=== PATIENT | female | born 1960 | race Two or more races ===

== ENCOUNTER 2018-07-21 20:10 | Emergency (ER) | payer OTHER ==
[~2018-07-21] VITALS: Ht 157.5 cm; Wt 79.4 kg
[2018-07-21 21:23] LABS: Basophils # (auto) 0.1 uL; Basophils % (auto) 0.8 % (0.0-2.0); Eosinophils # (auto) 0.1 uL; Hematocrit 44.2 % (36.0-46.0); Hemoglobin 14.8 g/dL (12.2-16.2); Lymphocytes # (auto) 2.2 uL; Lymphocytes % (auto) 29.8 % (10.0-50.0); Mean Corpuscular Hemoglobin 30.6 pg (28.0-32.0); Mean Corpuscular Hgb Conc. 33.6 g/dL (32.0-36.0); Mean Corpuscular Volume 91.2 fL (80.0-100.0); Monocytes # (auto) 0.6 uL; Monocytes % (auto) 7.9 % (0.0-12.0); Neutrophils # (auto) 4.5 uL; Neutrophils % (auto) 60.5 % (37.0-80.0); Nucleated Red Blood Cells % 0.1 %; Platelet Count (auto) 266 10^3/uL (140-450); Red Blood Cells 4.85 10^6/uL (4.0-5.20); Red Cell Distribution Width 13.7 % (11.8-14.3); White Blood Cell 7.3 10^3/uL (4.4-10.8)
[2018-07-21 21:30] LABS: Partial Thromboplastin Time 26.7 sec (23.78-33.04); Prothrombin Time 10.7 sec (9.27-12.13)
[2018-07-21 21:33] LABS: Urine Bacteria MANY /hpf (None Seen); Urine Blood 2+ /uL (Negative); Urine Mucus FEW (None Seen); Urine Specific Gravity 1.023 (1.001-1.035); Urine WBC 94 /hpf (0 - 5)
[2018-07-21 21:34] LABS: Albumin 3.8 g/dL (3.4-5.0); BUN/Creatinine Ratio 17.3; Calcium 8.9 mg/dL (8.5-10.1); Potassium 3.9 mmol/L (3.5-5.1)
[2018-07-21 21:49] LABS: Bilirubin, Total 0.5 mg/dL (0.2-1.0); Total Protein 8.2 g/dL (6.4-8.2)
[2018-07-22 06:29] VITALS: BP 145/73
== END 2018-07-22 06:50 | disposition home or self-care (01) ==
LOC: ER 20:10
DX: N39.0 Urinary tract infection, site not specified (principal); R19.7 Diarrhea, unspecified; R10.84 Generalized abdominal pain; Z88.0 Allergy status to penicillin
CPT/HCPCS: 36415; 74176; 80053; 81001; 82150; 83605; 83690; 85025; 85610; 85730

== ENCOUNTER 2020-09-06 11:30 | Emergency (ER) | payer OTHER ==
[~2020-09-06] VITALS: Ht 157.5 cm; Wt 81.6 kg
[2020-09-06] MEDS ORDERED: ASPirin 81 mg TAB PO ONE (11:45)
[2020-09-06] MEDS ORDERED: ONDANSETRON HCL 4 MG/2 ML VIAL IV ONE (11:45)
[2020-09-06] MEDS ORDERED: MORPHINE SULFATE 4 MG/ML SYR/VIAL IV ONE (11:45)
[2020-09-06 13:58] LABS: Basophils # (auto) 0 10 ^3/uL (0-0.2); Basophils % (auto) 0.3 % (0.0-2.0); Eosinophils # (auto) 0.1 10 ^3/uL (0-0.8); Eosinophils % (auto) 1.1 % (0.0-7.0); Hematocrit 40.9 % (36.0-46.0); Hemoglobin 13.6 g/dL (12.2-16.2); Lymphocytes # (auto) 1.8 10 ^3/uL (0.4-5.4); Lymphocytes % (auto) 30.2 % (10.0-50.0); Mean Corpuscular Hemoglobin 30.7 pg (28.0-32.0); Mean Corpuscular Hgb Conc. 33.2 g/dL (32.0-36.0); Mean Corpuscular Volume 92.4 fL (80.0-100.0); Monocytes # (auto) 0.3 10 ^3/uL (0-1.3); Monocytes % (auto) 5.9 % (0.0-12.0); Neutrophils # (auto) 3.7 10 ^3/uL (1.6-8.6); Neutrophils % (auto) 62.5 % (37.0-80.0); Nucleated Red Blood Cells % 0.1 %; Platelet Count (auto) 212 10^3/uL (140-450); Red Blood Cells 4.43 10^6/uL (4.0-5.20); Red Cell Distribution Width 14.1 % (11.8-14.3); White Blood Cell 5.9 10^3/uL (4.4-10.8)
[2020-09-06 14:12] LABS: Alanine Aminotransferase 44 U/L (13-56); Albumin 3.8 g/dL (3.4-5.0); Anion Gap 8 (5-15); Aspartate Aminotransferase 36 U/L (15-37); BUN/Creatinine Ratio 21.7; Blood Urea Nitrogen 13 mg/dL (7-18); Calcium 8.7 mg/dL (8.5-10.1); Carbon Dioxide 24 mmol/L (21-32); Chloride 108 mmol/L (98-107); GFR African American 132 mL/min; GFR Non-African American 109 mL/min; Glucose 85 mg/dL (74-106); Magnesium 1.8 mg/dL (1.6-2.6); Potassium 3.8 mmol/L (3.5-5.1); Sodium 140 mmol/L (136-145)
[2020-09-06 14:17] LABS: Alkaline Phosphatase 87 U/L (45-117); Bilirubin, Total 0.6 mg/dL (0.2-1.0); Total Protein 7.3 g/dL (6.4-8.2)
[2020-09-06 14:52] VITALS: BP 116/65
== END 2020-09-06 15:59 | disposition home or self-care (01) ==
LOC: ER 11:30
DX: R07.89 Other chest pain (principal); Z90.49 Acquired absence of other specified parts of digestive tract; Z90.89 Acquired absence of other organs; Z98.51 Tubal ligation status; Z88.0 Allergy status to penicillin
CPT/HCPCS: 36415; 71046; 80053; 83735; 84484; 85025; 85379; 93005; 96374; 96375; 99285; J2270; J2405

== ENCOUNTER 2021-07-28 20:06 | Emergency (ER) | payer OTHER ==
[~2021-07-28] VITALS: Ht 157.5 cm; Wt 79.4 kg
[2021-07-28 22:15] LABS: Basophils # (auto) 0 10 ^3/uL (0-0.2); Basophils % (auto) 0.7 % (0.0-2.0); Eosinophils # (auto) 0.1 10 ^3/uL (0-0.8); Eosinophils % (auto) 2.1 % (0.0-7.0); Hematocrit 43.7 % (36.0-46.0); Hemoglobin 14.5 g/dL (12.2-16.2); Lymphocytes # (auto) 2.1 10 ^3/uL (0.4-5.4); Lymphocytes % (auto) 31.1 % (10.0-50.0); Mean Corpuscular Hemoglobin 30.4 pg (28.0-32.0); Mean Corpuscular Hgb Conc. 33.3 g/dL (32.0-36.0); Mean Corpuscular Volume 91.4 fL (80.0-100.0); Monocytes # (auto) 0.5 10 ^3/uL (0-1.3); Neutrophils # (auto) 3.9 10 ^3/uL (1.6-8.6); Neutrophils % (auto) 58.1 % (37.0-80.0); Red Blood Cells 4.78 10^6/uL (4.0-5.20); Red Cell Distribution Width 13.7 % (11.8-14.3); White Blood Cell 6.7 10^3/uL (4.4-10.8)
[2021-07-28 22:28] LABS: Alanine Aminotransferase 35 U/L (13-56); Anion Gap 6 (5-15); Blood Urea Nitrogen 17 mg/dL (7-18); Calcium 9.1 mg/dL (8.5-10.1); Carbon Dioxide 23 mmol/L (21-32); Chloride 111 mmol/L (98-107); Glucose 107 mg/dL (74-106); Sodium 140 mmol/L (136-145)
[2021-07-28 22:43] LABS: Alkaline Phosphatase 95 U/L (45-117); Aspartate Aminotransferase 20 U/L (15-37); BUN/Creatinine Ratio 25.4; Bilirubin, Total 0.4 mg/dL (0.2-1.0); GFR African American 115 mL/min; GFR Non-African American 95 mL/min; Total Protein 7.5 g/dL (6.4-8.2)
[2021-07-29] MEDS ORDERED: HYDROcodone-ACET 5/325MG TAB PO ONE (02:00)
[2021-07-29 03:54] VITALS: BP 152/90
== END 2021-07-29 03:57 | disposition home or self-care (01) ==
LOC: ER 20:06
DX: M54.6 Pain in thoracic spine (principal); R91.1 Solitary pulmonary nodule; Z90.49 Acquired absence of other specified parts of digestive tract; Z90.89 Acquired absence of other organs; Z88.0 Allergy status to penicillin
CPT/HCPCS: 36415; 72128; 80053; 83880; 84484; 85025; 93005

== ENCOUNTER 2022-04-06 09:30 | Emergency (ER) | payer OTHER ==
[~2022-04-06] VITALS: Ht 157.5 cm; Wt 74.8 kg
[2022-04-06 09:55] VITALS: BP 144/84
[2022-04-06 10:01] LABS: Basophils # (auto) 0.1 10 ^3/uL (0-0.2); Basophils % (auto) 1.4 % (0.0-2.0); Eosinophils # (auto) 0 10 ^3/uL (0-0.8); Eosinophils % (auto) 0.1 % (0.0-7.0); Hematocrit 39.2 % (36.0-46.0); Hemoglobin 13.5 g/dL (12.2-16.2); Lymphocytes # (auto) 1.7 10 ^3/uL (0.4-5.4); Lymphocytes % (auto) 18.1 % (10.0-50.0); Mean Corpuscular Hemoglobin 30.7 pg (28.0-32.0); Mean Corpuscular Hgb Conc. 34.4 g/dL (32.0-36.0); Mean Corpuscular Volume 89.2 fL (80.0-100.0); Monocytes # (auto) 0.6 10 ^3/uL (0-1.3); Monocytes % (auto) 6.6 % (0.0-12.0); Neutrophils # (auto) 7.1 10 ^3/uL (1.6-8.6); Neutrophils % (auto) 73.8 % (37.0-80.0); Nucleated Red Blood Cells % 0.1 %; Red Cell Distribution Width 13.5 % (11.8-14.3); White Blood Cell 9.6 10^3/uL (4.4-10.8)
[2022-04-06 10:26] LABS: Albumin 3.6 g/dL (3.4-5.0); Calcium 8.7 mg/dL (8.5-10.1); Potassium 3.7 mmol/L (3.5-5.1)
[2022-04-06 10:28] LABS: Urine Bacteria NONE SEEN /hpf (None Seen); Urine Blood 3+ /uL (Negative); Urine Specific Gravity 1.025 (1.001-1.035); Urine WBC 1 /hpf (0 - 5)
[2022-04-06 10:30] LABS: BUN/Creatinine Ratio 10.5
[2022-04-06 10:31] LABS: Bilirubin, Total 0.7 mg/dL (0.2-1.0); Total Protein 7.5 g/dL (6.4-8.2)
[2022-04-06] MEDS ORDERED: LOPERAMIDE HCL 2 MG CAP/TAB PO ONE (11:45)
[2022-04-06] MEDS ORDERED: DICYCLOMINE HCL 10 MG CAP PO ONE (11:45)
[2022-04-06] MEDS ORDERED: DICYCLOMINE HCL 10 MG CAP ONE (11:50)
[2022-04-06] MEDS ORDERED: IBUP800T27 PO (13:43)
[2022-04-06] MEDS ORDERED: TAM04C PO (13:43)
== END 2022-04-06 13:51 | disposition home or self-care (01) ==
LOC: ER 09:30
DX: K52.9 Noninfective gastroenteritis and colitis, unspecified (principal); N20.0 Calculus of kidney; D25.9 Leiomyoma of uterus, unspecified; K76.0 Fatty (change of) liver, not elsewhere classified; Z90.49 Acquired absence of other specified parts of digestive tract; Z90.89 Acquired absence of other organs; Z79.1 Long term (current) use of non-steroidal anti-inflammatories (NSAID); Z79.899 Other long term (current) drug therapy; Z88.0 Allergy status to penicillin
CPT/HCPCS: 36415; 74176; 80053; 81001; 83690; 85025; 93005; 99285; J0500

== ENCOUNTER 2022-08-21 08:19 | Emergency (ER) | payer OTHER ==
[~2022-08-21] VITALS: Ht 157.5 cm; Wt 85.8 kg
[~2022-08-21 08:19] MED LIST: IBUP800T27 PO; TAM04C PO
[2022-08-21 08:46] LABS: Urine Bacteria NONE SEEN /hpf (None Seen); Urine Blood 2+ /uL (Negative); Urine Specific Gravity 1.018 (1.001-1.035); Urine WBC 6 /hpf (0 - 5)
[2022-08-21 08:57] LABS: Alcohol, Urine < 3.0 mg/dL (0-10); Amphetamine Screen, Urine NEGATIVE (NEGATIVE); Barbiturate Scree,Urine NEGATIVE (NEGATIVE); Benzodiazephine Screen, Urine NEGATIVE (NEGATIVE); Cannabinoid Screen, Urine NEGATIVE (NEGATIVE); Cocaine Screen, Urine NEGATIVE (NEGATIVE); Opiate Scree,Urine NEGATIVE (NEGATIVE); Phencyclidine Screen, Urine NEGATIVE (NEGATIVE)
[2022-08-21] MEDS ORDERED: NITR-87 PO (11:06)
[2022-08-21 12:32] VITALS: BP 120/84
== END 2022-08-21 12:34 | disposition home or self-care (01) ==
LOC: ER 08:19
DX: N39.0 Urinary tract infection, site not specified (principal); Z90.89 Acquired absence of other organs; Z98.51 Tubal ligation status; Z90.49 Acquired absence of other specified parts of digestive tract; Z88.0 Allergy status to penicillin
CPT/HCPCS: 71250; 80307; 81001

== ENCOUNTER 2023-01-10 07:33 | Emergency (ER) | payer OTHER ==
[~2023-01-10] VITALS: Ht 157.5 cm; Wt 85.6 kg
[~2023-01-10 07:33] MED LIST changes: +NITR-87 PO
[2023-01-10 08:29] VITALS: BP 112/80
[2023-01-10] MEDS ORDERED: AUG875T PO ×2 (08:31)
[2023-01-10] MEDS ORDERED: PROM1SOL4 PO (08:31)
[2023-01-10] MEDS ORDERED: AZIT500T66 PO (13:26)
[2023-01-11] MEDS ORDERED: METH4PAK PO (18:20)
== END 2023-01-10 08:40 | disposition home or self-care (01) ==
LOC: ER 07:33
DX: H66.91 Otitis media, unspecified, right ear (principal); J20.9 Acute bronchitis, unspecified; Z90.49 Acquired absence of other specified parts of digestive tract; Z98.51 Tubal ligation status
CPT/HCPCS: 71046

== ENCOUNTER 2024-03-09 08:35 | Emergency (ER) | payer OTHER ==
[~2024-03-09] VITALS: Ht 157.5 cm; Wt 87.8 kg
[~2024-03-09 08:35] MED LIST changes: +AZIT500T66 PO; +IBUP-1456 PO; -IBUP800T27 PO; +METH4PAK PO; +PROM1SOL4 PO; -TAM04C PO; +TAMS-35 PO
[2024-03-09] MEDS ORDERED: IBUP1TAB5 PO (10:09)
[2024-03-09] MEDS ORDERED: BENZ100C97 PO (10:09)
[2024-03-09] MEDS ORDERED: PRED20TA2 PO (10:09)
[2024-03-09] MEDS ORDERED: ALBU108A5 IN (10:09)
[2024-03-09] MEDS ORDERED: GUAI1SOL3 PO (10:09)
[2024-03-09 10:35] VITALS: BP 121/72; PULSE 97; RESP 16; TEMP 98.7; O2SAT 97
[2024-03-13] MEDS ORDERED: DEXT1SYP9 PO (23:25)
[2024-03-13] MEDS ORDERED: MONT10TA23 PO (23:25)
[2024-03-13] MEDS ORDERED: CEPH500C PO (23:25)
[2024-03-13] MEDS ORDERED: ALBU108A5 IN (23:25)
[2024-03-13] MEDS ORDERED: PRED20TA2 PO (23:25)
== END 2024-03-09 10:47 | disposition home or self-care (01) ==
LOC: ER 08:35
DX: J20.9 Acute bronchitis, unspecified (principal); Z90.49 Acquired absence of other specified parts of digestive tract; Z98.51 Tubal ligation status

== ENCOUNTER 2024-12-08 17:41 | Emergency (ER) | payer OTHER ==
[~2024-12-08] VITALS: Ht 157.5 cm; Wt 88.2 kg
[~2024-12-08 17:41] MED LIST changes: +ALBU108A5 IN; +BENZ100C97 PO; +CEPH500C PO; +DEXT1SYP9 PO; +GUAI1SOL3 PO; +IBUP1TAB5 PO; +MONT10TA23 PO; +PRED20TA2 PO
[2024-12-08 17:52] VITALS: BP 148/89; PULSE 98; RESP 17; O2SAT 94
[2024-12-08] MEDS ORDERED: SODIUM CHLORIDE 0.9% 1,000 ML IV ONE (18:15)
== END 2024-12-08 18:24 | disposition left against medical advice (07) ==
LOC: ER 17:41
DX: H57.11 Ocular pain, right eye (principal); Z53.21 Procedure and treatment not carried out due to patient leaving prior to being seen by health care provider

== ENCOUNTER 2025-03-27 06:45 | Emergency (ER) | payer OTHER ==
[~2025-03-27] VITALS: Ht 157.5 cm; Wt 85.0 kg
--- NOTE | 2025-03-27 07:43 | ED.PDOC ---
Musculoskeletal HPI Comments A 65 YEAR OLD FEMALE PRESENTS TO THE ED WITH COMPLAINT OF LEFT HEEL PAIN. PATIENT STATES SHE HAS BEEN EXPERIENCING LEFT HEEL/FOOT PAIN OFF AND ON FOR THE PAST 1 YEAR SINCE SHE INJURED IT AND NOTES HER PAIN HAS BEEN WORSE OVER THE PAST 1 WEEK. PATIENT REPORTS HER PAIN IS WORSE WITH MOVEMENT. PATIENT IS ABLE TO WALK AND BEAR WEIGHT WITH A STABLE GAIT. PATIENT DENIES FEVER, CHILLS, SHORTNESS OF BREATH, CHEST PAIN, ABDOMINAL PAIN, NAUSEA, VOMITING, HEADACHE, OR OTHER COMPLAINTS. NO OTHER SYMPTOMS OR MODIFYING FACTORS AT THIS TIME. PATIENT IS ALERT, ORIENTED X 4, AND HAS STEADY GAIT. Chief Complaint: Lower Extremity Time Seen by MD: 06:49 Primary Care Provider: perfecto Graves Notes: Nurses Notes, Medications, Allergies Allergies: Coded Allergies: Penicillins (Verified Allergy, Unknown, 07/21/18) Home Meds Active Scripts Methocarbamol (Methocarbamol) 750 Mg Tab, 750 MG PO QHSP PRN, #20 TAB Prov:JANELL CARRINGTON 03/27/25 Ibuprofen (Ibuprofen) 800 Mg Tab, 1 TAB PO TID, #30 TAB Prov:JANELL CARRINGTON PA 03/27/25 Montelukast Sodium (Singulair) 10 Mg Tab, 1 TAB PO DAILY for 30 Days, #30 TAB Prov:RICH SEGAL Q MOSHGIACH 03/13/24 Albuterol Sulfate (Albuterol Sulfate Hfa) 108 Mcg/Act Aer, 1 PUFF IN Q4HPRN PRN, #1 INH As needed for cough nasal congestion shortness of breath or wheezing Prov:RICH SEGAL Q MOSHGIACH 03/13/24 Dextromethorphan-Guaifenesin (Robitussin-Dm) 10 Ml Sr, 10 ML PO Q6HPRN PRN, #120 ML As needed for cough Prov:RICH SEGAL Q MOSHGIACH 03/13/24 Prednisone (Prednisone) 20 Mg Tab, 1 TAB PO BID for 5 Days, #10 TAB Start tomorrow withstart tomorrow with food Prov:RICH SEGAL Q MOSHGIACH 03/13/24 Cephalexin Monohydrate (Cephalexin) 500 Mg Cap, 1 CAP PO QID for 10 Days, #40 CAP Prov:RICH SEGAL Q MOSHGIACH 03/13/24 Prednisone (Prednisone) 20 Mg Tab, 40 MG PO DAILY for 5 Days, #10 TAB 0 Refills Prov:MARY BROWN MOSHGIACH 03/09/24 Albuterol Sulfate (Albuterol Sulfate Hfa) 108 Mcg/Act Aer, 108 MCG IN Q6HPRN PRN for 30 Days, #1 AER 0 Refills Prov:MARY BROWN MOSHGIACH 03/09/24 Ibuprofen Micronized (Ibuprofen) 600 Mg Tab, 600 MG PO TIDPRN PRN for 7 Days, #21 TAB 0 Refills Prov:MARY BROWN MOSHGIACH 03/09/24 Benzonatate (Benzonatate) 100 Mg Cap, 1-2 CAP PO TIDPRN PRN for 10 Days, #60 CAP 0 Refills Prov:MARY BROWN MOSHGIACH 03/09/24 Promethazine-Dm (Promethazine Dm 6.25-15 mg/5Ml) 1 Ana Luisa Ana Luisa, 5 ML PO TID, #180 ML Prov:JANELL CARRINGTON 03/01/23 Azithromycin (Azithromycin) 500 Mg Tab, 1 TAB PO DAILY, #5 TAB Prov:JANELL CARRINGTON 03/01/23 Methylprednisolone (Medrol Dosepak) 4 Mg Fausto, 4 MG PO UD, #21 TAB UAD Prov:JANELL CARRINGTON 01/11/23 Azithromycin (Azithromycin) 500 Mg Tab, 1 TAB PO DAILY, #6 TAB Prov:JANELL CARRINGTON 01/10/23 Promethazine-Dm (Promethazine Dm 6.25-15 mg/5Ml) 1 Ana Luisa Ana Luisa, 5 ML PO TID, #160 ML Prov:JANELL CARRINGTON 01/10/23 Nitrofurantoin Monohydrate Mac (Macrobid) 100 Mg Cap, 100 MG PO BID for 7 Days, #14 CAP Prov:DAVID SCOTT MD 08/21/22 Tamsulosin Hcl (Flomax) 0.4 Mg Cap, 0.4 MG PO DAILY, #20 CAP Prov:JANELL CARRINGTON 04/06/22 Ibuprofen (Ibuprofen) 800 Mg Tab, 800 MG PO TID PRN, #30 TAB Prov:JANELL CARRINGTON 04/06/22 Reported Medications Guaifenesin-Codeine (Codeine/Guaifenesin 100-10 mg/5Ml) 1 Ana Luisa Ana Luisa, 5 ML PO TIDPRN PRN for 5 Days, #75 ML 0 Refills 03/09/24 Information Source: Patient Mode of Arrival: Ambulatory Location: Left Extremity Location: Foot Timing: Months Prehospital treatment: None Severity: Moderate Able to Move Extremity: Yes Bear Weight: Fully Pain: Moderate Mechanism: Blunt Trauma Circumstances: Accident Onset of Symptoms: After Trauma Symptoms: Pain DVT Risk Factors: NONE Last Tetanus: Unknown Associated signs and symptoms: Foot pain Past Medical History PAST MEDICAL HISTORY: Anxiety, Asthma Surgical History: Cholecystectomy, , Tonsillectomy, Tubal Ligation [employer]ACHINE [employer] 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 Family History Family History: Reviewed,noncontributory to illness, Family hx of stroke Social History Smoker: Non-Smoker Alcohol: Occasionally Drugs: Denies Drug Use Lives In: Home Constitutional: denies: chills, diaphoresis, fatigue, fever, malaise, sweats, weakness, others EENTM: denies: blurred vision, double vision, ear bleeding, ear discharge, ear drainage, ear pain, ear ringing, eye pain, eye redness, hearing loss, mouth pain, mouth swelling, nasal discharge, nose bleeding, nose congestion, nose pain, photophobia, tearing, throat pain, throat swelling, voice changes, others Respiratory: denies: cough, hemoptysis, orthopnea, SOB at rest, shortness of breath, SOB with excertion, stridor, wheezing, others Cardiovascular: denies: chest pain, dizzy spells, diaphoresis, Dyspnea on exertion, edema, irregular heart beat, left arm pain, lightheadedness, palpitations, PND, syncope, others Gastrointestinal: denies: abdomen distended, abdominal pain, blood streaked bowels, constipated, diarrhea, dysphagia, difficulty swallowing, hematemesis, melena, nausea, poor appetite, poor fluid intake, rectal bleeding, rectal pain, vomiting, others Genitourinary: denies: abnormal vagina bleeding, burning, dyspareunia, dysuria, flank pain, frequency, hematuria, incontinence, pain, , vagina discharge, urgency, others Neurological: denies: dizziness, fainting, headache, left sided numbness, left sided weakness, numbness, paresthesia, pre-existing deficit, right sided numbness, right sided weakness, seizure, speech problems, tingling, tremors, weakness, others Musculoskeletal: reports: joint pain, others (LEFT HEEL/FOOT PAIN); denies: back pain, gout, joint swelling, muscle pain, muscle stiffness, neck pain Integumetry: denies: bruises, change in color, change in hair/nails, dryness, laceration, lesions, lumps, rash, wounds, others Allergic/Immunocompromised: denies: Difficulty Healing, Frequent Infections, Hives, Itching, others Hematologic/Lymphatic: denies: anemia, blood clots, easy bleeding, easy bruising, swollen glands, others Endocrine: denies: excessive hunger, excessive sweating, excessive thirst, excessive urination, flushing, intolerance to cold, intolerance to heat, unexplained weight gain, unexplained weight loss, others Psychiatric: denies: anxiety, bipolar disorder, depression, hopeless, panic disorder, schizophrenia, sleepless, suicidal, others All Other Systems: Reviewed and Negative Physical Exam General Appearance: No Apparent Distress, Obese HEENT: Normal ENT Inspection, PERRL/EOMI, Pharynx Normal, TMs Normal Neck: Full Range of Motion, Non-Tender, Normal, Normal Inspection Respiratory: Chest Non-Tender, Lungs Clear, No Accessory Muscle Use, No Respiratory Distress, Normal Breath Sounds Cardiovascular: No Edema, No JVD, No Murmur, No Gallop, Normal Peripheral Pulses, Regular Rate/Rhythm Breast Exam: Deferred Gastrointestinal: No Organomegaly, Non Tender, No Pulsatile Mass, Normal Bowel Sounds, Soft Genitalia: Deferred Pelvic: Deferred Rectal: Deferred Extremities: No calf tenderness, Normal capillary refill, Normal range of motion, No pedal edema, Tender (ON LEFT HEEL FOOT, NO REDNESS, SWELLING AND DEFORMITY. ) Musculoskeletal : Apperance: Normal Neurologic: Alert, lock tender II-XII nml as Tested, No Motor Deficits, Normal Affect, Normal Mood, No Sensory Deficits Cerebellar Function: Normal Reflexes: Normal Skin: Dry, Normal Color, Warm Peripheral Pulses: 2+ carotid (R), 2+ carotid (L), 2+ dorsalis pedis (R), 2+ dorsalis pedis (L) Lymphatic: No Adenopathy Was a procedure done? Was a procedure done?: No Differential Diagnosis EXT Differential Diagnosis: Fracture, Sprain, Dislocation, DJD, Contusion, Strain, Arthritis X-Ray, Labs, Meds, VS Vital Signs Date Time Temp Pulse Resp B/P (MAP) Pulse Ox O2 Delivery O2 Flow Rate FiO2 03/27/25 07:50 87 17 98 Room Air 03/27/25 07:50 98.4 87 17 128/77 (94) 98 98.4 03/27/25 07:20 98.2 83 18 131/75 (93) 96 98.2 X-Ray, Labs, Meds, VS Comment EXTERNAL MEDICAL RECORDS REVIEWED: [NONE] INDEPENDENT HISTORIANS: [NONE] SOCIAL DETERMINANTS OF HEALTH: [NONE] LABS ORDERED: NONE REVIEWED AND INTERPRETED RESULTS: NONE IMAGING ORDERED: XR FOOT LT: [INTERPRETED BY ME. NO ACUTE FRACTURE OR DISLOCATION SEEN. CALCANEAL BONE SPUR VISUALIZED. PENDING RADIOLOGY REVIEW.] TREATMENTS ORDERED: NONE PROCEDURES PERFORMED: NONE CRITICAL CARE TIME: NONE I HAVE DISCUSSED THE PATIENT WITH THE ATTENDING PHYSICIAN DR. RUSH AND HE AGREES WITH THE PATIENT'S PLAN OF CARE AND DISPOSITION. BASED ON HISTORY OF PRESENT ILLNESS, AND PHYSICAL EXAM, PATIENT WILL BE DISCHARGED HOME. DISCUSSED PLAN FOR DISCHARGE HOME WITH RX [ROBAXIN]. MEDICATION WARNINGS GIVEN. SHARED DECISION MAKING: PATIENT INSTRUCTED TO FOLLOW UP WITH PRIMARY CARE PROVIDER IN 1-2 DAYS FOR RE-EVALUATION OF SYMPTOMS. PATIENT VERBALIZES UNDERSTANDING TO RETURN TO ED FOR NEW OR WORSENING SYMPTOMS OR IF FOLLOW UP WITH PCP CANNOT BE OBTAINED. PATIENT FEELS COMFORTABLE GOING HOME AT THIS TIME. ALL QUESTIONS ADDRESSED AT TIME OF DISCHARGE. Images Reviewed?: Images reviewed and evaluated by me Time of 1ST Reevaluation: 08:14 Reevaluation 1ST: Improved Patient Education/Counseling: Diagnosis, Treatment, Need For Follow Up Family Education/Counseling: Diagnosis, Treatment, Need For Follow Up Medical Screening: No EMC Exist At This Time Departure 1 Departure Time of Disposition: 08:20 Impression: Primary Impression: Bone spur of inferior portion of left calcaneus Additional Impression: Degenerative joint disease of left foot Qualified Codes: M19.072 - Primary osteoarthritis, left ankle and foot Disposition: 01 HOME / SELF CARE / HOMELESS Condition: Stable Additional Instructions: FOLLOW-UP WITH PCP IN 1 TO 2 DAYS. TAKE MEDICATIONS PRESCRIBED. RETURN TO ED FOR ANY NEW OR WORSENING SYMPTOMS. e-Prescriptions Methocarbamol (Methocarbamol) 750 Mg Tab 750 MG PO QHSP PRN, #20 TAB Prov: JANELL CARRINGTON 03/27/25 Ibuprofen (Ibuprofen) 800 Mg Tab 1 TAB PO TID, #30 TAB Prov: JANELL CARRINGTON 03/27/25 Discharged With: Self Critical Care Note Critical Care Time?: No Stability Stability form required: No I personally scribed for JANELL CARRINGTON ([email or web address]) on 03/27/25 at 07:43. Electronically submitted by Abhishek Clark ([email or web address]). I personally scribed for JANELL CARRINGTON ([email or web address]) on 03/27/25 at 08:08. Electronically submitted by Abhishek Clark ([email or web address]). JANELL CARRINGTON Mar 27, 2025 07:43
[2025-03-27 07:50] VITALS: BP 128/77; PULSE 87; RESP 17; TEMP 98.4; O2SAT 98
--- NOTE | 2025-03-27 08:07 | DVH ---
CLINICAL INFORMATION: 65 years old, Female; PAIN, NO INJURY. TECHNIQUE: 3 views of the left foot were obtained. COMPARISON: None FINDINGS: No acute fracture or dislocation. Bipartite tibial sesamoid of the 1st metatarsal. Mild-to- moderate arthritic changes of the 1st MTP joint. Mild valgus alignment of the 2nd through 4th MTP serenity nts. Minimal plantar calcaneal spur. Adjacent soft tissues are unremarkable. IMPRESSION: 1. No evidence of acute bony abnormality. 2. Nonacute findings as described above.
[2025-03-27] MEDS ORDERED: METH-1182 PO (08:08)
== END 2025-03-27 08:19 | disposition home or self-care (01) ==
LOC: ER 06:45
DX: M77.32 Calcaneal spur, left foot (principal); M19.072 Primary osteoarthritis, left ankle and foot; J45.909 Unspecified asthma, uncomplicated; F41.9 Anxiety disorder, unspecified; Z90.49 Acquired absence of other specified parts of digestive tract; Z90.89 Acquired absence of other organs; Z98.51 Tubal ligation status; Z88.0 Allergy status to penicillin; Z79.899 Other long term (current) drug therapy; Z79.52 Long term (current) use of systemic steroids; Z79.1 Long term (current) use of non-steroidal anti-inflammatories (NSAID)
CPT/HCPCS: 73630

== ENCOUNTER 2025-09-03 07:32 | Emergency (ER) | payer OTHER ==
[~2025-09-03] VITALS: Ht 157.5 cm; Wt 87.0 kg
[~2025-09-03 07:32] MED LIST changes: +METH-1182 PO
--- NOTE | 2025-09-03 08:09 | ED.PDOC ---
Back pain HPI HPI Comments A 65 YEAR OLD FEMALE PRESENTS TO THE ED WITH COMPLAINT OF LOWER BACK PAIN. PATIENT STATES SHE HAS BEEN EXPERIENCING LOWER BACK PAIN THAT STARTED YESTERDAY. PATIENT REPORTS HER PAIN IS WORSE WITH MOVEMENT. PATIENT DENIES SADDLE ANESTHESIA, URINARY INCONTINENCE, BOWEL INCONTINENCE, DYSURIA, HEMATURIA, FLANK PAIN, FEVER, CHILLS, SHORTNESS OF BREATH, CHEST PAIN, ABDOMINAL PAIN, NAUSEA, VOMITING, HEADACHE, OR OTHER COMPLAINTS. NO OTHER SYMPTOMS OR MODIFYING FACTORS AT THIS TIME. PATIENT IS ALERT, ORIENTED X 4, AND HAS STEADY GAIT. Chief Complaint: Back Pain Time Seen by MD: 07:42 Primary Care Provider: perfecto Reviewed Notes: Nurses Notes, Medications, Allergies Allergies: Coded Allergies: Penicillins (Verified Allergy, Unknown, 07/21/18) Home Meds Active Scripts Tramadol HCl (Tramadol HCl) 50 Mg Tab, 50 MG PO TID, #15 TAB Prov:JANELL CARRINGTON 09/03/25 Sulfamethoxazole W/Trimethopri (Bactrim Ds Tablet) 1 Tab Tb, 1 TAB PO BID for 10 Days, #20 TAB Prov:JANELL CARRINGTON 09/03/25 Methocarbamol (Methocarbamol) 750 Mg Tab, 750 MG PO QHSP PRN, #20 TAB Prov:JANELL CARRINGTON 03/27/25 Ibuprofen (Ibuprofen) 800 Mg Tab, 1 TAB PO TID, #30 TAB Prov:JANELL CARRINGTON 03/27/25 Montelukast Sodium (Singulair) 10 Mg Tab, 1 TAB PO DAILY for 30 Days, #30 TAB Prov:RICH SEGAL Q ASSOCIATE QUALITY ENGINEER 03/13/24 Albuterol Sulfate (Albuterol Sulfate Hfa) 108 Mcg/Act Aer, 1 PUFF IN Q4HPRN PRN, #1 INH As needed for cough nasal congestion shortness of breath or wheezing Prov:DEE SEGALA Q ASSOCIATE QUALITY ENGINEER 03/13/24 Dextromethorphan-Guaifenesin (Robitussin-Dm) 10 Ml Sr, 10 ML PO Q6HPRN PRN, #120 ML As needed for cough Prov:RICH SEGAL Q ASSOCIATE QUALITY ENGINEER 03/13/24 Prednisone (Prednisone) 20 Mg Tab, 1 TAB PO BID for 5 Days, #10 TAB Start tomorrow withstart tomorrow with food Prov:RICH SEGAL Q ASSOCIATE QUALITY ENGINEER 03/13/24 Cephalexin Monohydrate (Cephalexin) 500 Mg Cap, 1 CAP PO QID for 10 Days, #40 CAP Prov:RICH SEGAL Q ASSOCIATE QUALITY ENGINEER 03/13/24 Prednisone (Prednisone) 20 Mg Tab, 40 MG PO DAILY for 5 Days, #10 TAB 0 Refills Prov:MARY BROWN ASSOCIATE QUALITY ENGINEER 03/09/24 Albuterol Sulfate (Albuterol Sulfate Hfa) 108 Mcg/Act Aer, 108 MCG IN Q6HPRN PRN for 30 Days, #1 AER 0 Refills Prov:MARY BROWN ASSOCIATE QUALITY ENGINEER 03/09/24 Ibuprofen Micronized (Ibuprofen) 600 Mg Tab, 600 MG PO TIDPRN PRN for 7 Days, #21 TAB 0 Refills Prov:MARY BROWN ASSOCIATE QUALITY ENGINEER 03/09/24 Benzonatate (Benzonatate) 100 Mg Cap, 1-2 CAP PO TIDPRN PRN for 10 Days, #60 CAP 0 Refills Prov:MARY BROWN ASSOCIATE QUALITY ENGINEER 03/09/24 Promethazine-Dm (Promethazine Dm 6.25-15 mg/5Ml) 1 Ana Luisa Ana Luisa, 5 ML PO TID, #180 ML Prov:JANELL CARRINGTON 03/01/23 Azithromycin (Azithromycin) 500 Mg Tab, 1 TAB PO DAILY, #5 TAB Prov:JANELL CARRINGTON 03/01/23 Methylprednisolone (Medrol Dosepak) 4 Mg Fausto, 4 MG PO UD, #21 TAB UAD Prov:JANELL CARRINGTON 01/11/23 Azithromycin (Azithromycin) 500 Mg Tab, 1 TAB PO DAILY, #6 TAB Prov:JANELL CARRINGTON 01/10/23 Promethazine-Dm (Promethazine Dm 6.25-15 mg/5Ml) 1 Ana Luisa Ana Luisa, 5 ML PO TID, #160 ML Prov:JANELL CARRINGTON 01/10/23 Nitrofurantoin Monohydrate Mac (Macrobid) 100 Mg Cap, 100 MG PO BID for 7 Days, #14 CAP Prov:DAVID SCOTT MD 08/21/22 Tamsulosin Hcl (Flomax) 0.4 Mg Cap, 0.4 MG PO DAILY, #20 CAP Prov:JANELL CARIRNGTON 04/06/22 Ibuprofen (Ibuprofen) 800 Mg Tab, 800 MG PO TID PRN, #30 TAB Prov:JANELL CARRINGTON 04/06/22 Reported Medications Guaifenesin-Codeine (Codeine/Guaifenesin 100-10 mg/5Ml) 1 Ana Luisa Ana Luisa, 5 ML PO TIDPRN PRN for 5 Days, #75 ML 0 Refills 03/09/24 Information Source: Patient Mode of Arrival: Ambulatory Timing: Days Duration: Since onset, Days Location of Back pain: (L) Lumbar Severity: Moderate Prehospital treatment: None Quality: Aching, Cramping Onset: Spontaneous Modifying Factors: Movement Associated signs and symptoms: None Past Medical History PAST MEDICAL HISTORY: Anxiety, Asthma Surgical History: Cholecystectomy, , Tonsillectomy, Tubal Ligation HIGH [employer]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 History Family History Family History: Reviewed,noncontributory to illness, Family hx of stroke Social History Smoker: Non-Smoker Alcohol: Occasionally Drugs: Denies Drug Use Lives In: Home Constitutional: denies: chills, diaphoresis, fatigue, fever, malaise, sweats, weakness, others EENTM: denies: blurred vision, double vision, ear bleeding, ear discharge, ear drainage, ear pain, ear ringing, eye pain, eye redness, hearing loss, mouth pain, mouth swelling, nasal discharge, nose bleeding, nose congestion, nose pain, photophobia, tearing, throat pain, throat swelling, voice changes, others Respiratory: denies: cough, hemoptysis, orthopnea, SOB at rest, shortness of breath, SOB with excertion, stridor, wheezing, others Cardiovascular: denies: chest pain, dizzy spells, diaphoresis, Dyspnea on e xertion, edema, irregular heart beat, left arm pain, lightheadedness, palpitations, PND, syncope, others Gastrointestinal: denies: abdomen distended, abdominal pain, blood streaked bowels, constipated, diarrhea, dysphagia, difficulty swallowing, hematemesis, melena, nausea, poor appetite, poor fluid intake, rectal bleeding, rectal pain, vomiting, others Genitourinary: denies: abnormal vagina bleeding, burning, dyspareunia, dysuria, flank pain, frequency, hematuria, incontinence, pain, , vagina discharge, urgency, others Neurological: denies: dizziness, fainting, headache, left sided numbness, left sided weakness, numbness, paresthesia, pre-existing deficit, right sided numbness, right sided weakness, seizure, speech problems, tingling, tremors, weakness, others Musculoskeletal: reports: back pain (LEFT LOWER BACK PAIN), muscle pain; denies: gout, joint pain, joint swelling, muscle stiffness, neck pain, others Integumetry: denies: bruises, change in color, change in hair/nails, dryness, laceration, lesions, lumps, rash, wounds, others Allergic/Immunocompromised: denies: Difficulty Healing, Frequent Infections, Hives, Itching, others Hematologic/Lymphatic: denies: anemia, blood clots, easy bleeding, easy bruising, swollen glands, others Endocrine: denies: excessive hunger, excessive sweating, excessive thirst, excessive urination, flushing, intolerance to cold, intolerance to heat, unexplained weight gain, unexplained weight loss, others Psychiatric: denies: anxiety, bipolar disorder, depression, hopeless, panic disorder, schizophrenia, sleepless, suicidal, others All Other Systems: Reviewed and Negative Physical Exam General Appearance: Mild Distress, Obese, Other (ANXIOUS ) HEENT: Normal ENT Inspection, PERRL/EOMI, Pharynx Normal, TMs Normal Neck: Full Range of Motion, Non-Tender, Normal, Normal Inspection Respiratory: Chest Non-Tender, Lungs Clear, No Accessory Muscle Use, No Respiratory Distress, Normal Breath Sounds Cardiovascular: No Edema, No JVD, No Murmur, No Gallop, Normal Peripheral Pulses, Regular Rate/Rhythm Breast Exam: Deferred Gastrointestinal: No Organomegaly, Non Tender, No Pulsatile Mass, Normal Bowel Sounds, Soft Genitalia: Deferred Pelvic: Deferred Rectal: Deferred Extremities: No calf tenderness, Normal capillary refill, Normal inspection, Normal range of motion, Non-tender, No pedal edema Musculoskeletal : Location: Bilateral Extremity Location: Back Apperance: Tenderness: Moderate (MUSCLE SPASM ON LOW BACK, NO BONY TENDERNESS, SWELLING AND DEFORMITY. NO CVA TENDERNESS. ) Neurologic: Alert, slab lifting supervisor II-XII nml as Tested, No Motor Deficits, Normal Affect, Normal Mood, No Sensory Deficits Cerebellar Function: Normal Reflexes: Normal Skin: Dry, Normal Color, Warm Peripheral Pulses: 2+ carotid (R), 2+ carotid (L) Lymphatic: No Adenopathy Was a procedure done? Was a procedure done?: No Back Pain Differential Dx Differential Diagnosis: DJD, Musculoskeletal Pain, Strain Other Differential Diagnosis ACUTE UTI, ACUTE CYSTITIS X-Ray, Labs, Meds, VS Vital Signs Date Time Temp Pulse Resp B/P (MAP) Pulse Ox O2 Delivery O2 Flow Rate FiO2 09/03/25 10:20 98.8 86 16 117/72 (87) 96 98.8 09/03/25 10:20 86 16 96 Room Air 09/03/25 07:33 97.8 94 18 148/99 97 97.8 Lab Test 09/03/25 09:53 09/03/25 09:16 09/03/25 08:01 Range/Units White Blood Count 6.7 4.4-10.8 10^3/uL Red Blood Count 4.87 4.0-5.20 10^6/uL Hemoglobin 15.1 12.2-16.2 g/dL Hematocrit 45.3 36.0-46.0 % Mean Corpuscular Volume 92.9 80.0-100.0 fL Mean Corpuscular Hemoglobin 31.0 28.0-32.0 pg Mean Corpuscular Hemoglobin Concent 33.3 32.0-36.0 g/dL Red Cell Distribution Width 13.2 11.8-14.3 % Platelet Count 189 140-450 10^3/uL Mean Platelet Volume 8.1 6.9-10.8 fL Neutrophils (%) (Auto) 64.4 37.0-80.0 % Lymphocytes (%) (Auto) 28.2 10.0-50.0 % Monocytes (%) (Auto) 5.5 0.0-12.0 % Eosinophils (%) (Auto) 1.1 0.0-7.0 % Basophils (%) (Auto) 0.8 0.0-2.0 % Neutrophils # (Auto) 4.3 1.6-8.6 10 ^3/uL Lymphocytes # (Auto) 1.9 0.4-5.4 10 ^3/uL Monocytes # (Auto) 0.4 0-1.3 10 ^3/uL Eosinophils # (Auto) 0.1 0-0.8 10 ^3/uL Basophils # (Auto) 0.1 0-0.2 10 ^3/uL Nucleated Red Blood Cells 0.1 % Sodium Level 137 136-145 mmol/L Potassium Level 4.0 3.5-5.1 mmol/L Chloride Level 104 98-107 mmol/L Carbon Dioxide Level 22 20-31 mmol/L Anion Gap 11 5-15 Blood Urea Nitrogen 11 9-23 mg/dL Creatinine 0.83 0.550-1.02 mg/dL Glomerular Filtration Rate Calc 79 >90 mL/min BUN/Creatinine Ratio 13.3 10.0-20.0 Serum Glucose 289 H 74-106 mg/dL Calcium Level 9.0 8.7-10.4 mg/dL POC Glucose 291 H 70-106 mg/dl Urine Color Yellow Yellow Urine Clarity Cloudy H Clear Urine pH 6.0 5.0-9.0 Urine Specific [place] 1.031 1.001-1.035 Urine Protein 1+ H Negative Urine Ketones 1+ H Negative Urine Blood 2+ H Negative /uL Urine Nitrite 1+ H Negative Urine Bilirubin Negative Negative Urine Urobilinogen Normal Negative mg/dL Urine Leukocyte Esterase 3+ Negative /uL Urine RBC 36 0 - 4 /hpf Urine Microscopic WBC 199 H 0-5 /HPF Urine Squamous Epithelial Cells Few <5 /hpf Urine Bacteria Many H None Seen /hpf Urine Mucus Few None Seen Urine Glucose 4+ H Normal mg/dL Current Medications Medications (Trade) Dose Ordered Sig/Fran Route Start Time Stop Time Status Last Admin Ketorolac Tromethamine (Toradol Injection) 60 mg ONCE ONCE IM 09/03/25 08:15 09/03/25 08:16 DC 09/03/25 08:42 Ceftriaxone Sodium (Rocephin) 1,000 mg ONCE ONCE IM 09/03/25 09:30 09/03/25 09:31 DC 09/03/25 09:47 INDICATION: PAIN, NO INJURY TECHNIQUE: Frontal and lateral views of the lumbar spine were obtained. COMPARISON: None FINDINGS: Multilevel facet arthropathy most severe at L4-L5 through L5-S1 causing moderate to severe neural foraminal and spinal canal stenosis. There are no fractures or subluxations. Vertebral body heights and disc spaces are well maintained. Paravertebral soft tissues are unremarkable. IMPRESSION: 1. Of the visualized spine, there is no evidence for fracture or subluxation. ATED BY: AMOS SERRA MD DICTATED DATE/TIME: 09/03/25838 SIGNED BY: AMOS SERRA MD SIGNED DATE/TIME: 09/03/25838 CC: X-Ray, Labs, Meds, VS Comment EXTERNAL MEDICAL RECORDS REVIEWED: [NONE] INDEPENDENT HISTORIANS: [NONE] SOCIAL DETERMINANTS OF HEALTH: [NONE] LABS ORDERED: UA REVIEWED AND INTERPRETED RESULTS: LEUKO 3+, NITRITE1+, URINE WBC 199, URINE BACT MANY, UGLU 4+, GLUC 289 PATIENT'S ACCU-CHEK BLOOD SUGAR MEASURED 291. IMAGING ORDERED: XR L-SPINE TREATMENTS ORDERED: TORADOL 60 MG IM, ROCEPHIN 1G IM PROCEDURES PERFORMED: NONE CRITICAL CARE TIME: NONE I HAVE DISCUSSED THE PATIENT WITH THE ATTENDING PHYSICIAN DR. NICHOLSON AND HE AGREES WITH THE PATIENT'S PLAN OF CARE AND DISPOSITION. PATIENT CALLED HER PRIMARY CARE PHYSICIAN HERE IN THE ED AND MADE AN APPOINTMENT WITH THEM ON Saturday09/06/2025 TO FOLLOW UP REGARDING HER HIGH BLOOD SUGAR. BASED ON HISTORY OF PRESENT ILLNESS, AND PHYSICAL EXAM, PATIENT WILL BE DISCHARGED HOME. DISCUSSED PLAN FOR DISCHARGE HOME WITH RX [SEPTRA DS AND ULTRAM ]. MEDICATION WARNINGS GIVEN. SHARED DECISION MAKING: DISCUSSED WITH PATIENT THAT THEIR WORKUP WAS NORMAL. PATIENT INSTRUCTED TO FOLLOW UP WITH PRIMARY CARE PROVIDER IN 1-2 DAYS FOR RE- EVALUATION OF SYMPTOMS. PATIENT VERBALIZES UNDERSTANDING TO RETURN TO ED FOR NEW OR WORSENING SYMPTOMS OR IF FOLLOW UP WITH PCP CANNOT BE OBTAINED. PATIENT FEELS COMFORTABLE GOING HOME AT THIS TIME. ALL QUESTIONS ADDRESSED AT TIME OF DISCHARGE. Images Reviewed?: Images reviewed and evaluated by me Time of 1ST Reevaluation: 11:00 Reevaluation 1ST: Improved Patient Education/Counseling: Diagnosis, Treatment Family Education/Counseling: Diagnosis, Treatment Medical Screening: No EMC Exist At This Time SEPSIS Sepsis Screen Date sepsis recognized/suspect: Sep 03, 2025 Time Sepsis recognized/suspect: 0736 Recent Procedure: No On Antibiotic Therapy: No Respiratory Rate >20: No Heart Rate >90: Yes Temp<36 C (96.8 F) or >38.3 C: No SBP <90 or MAP <65 mmHG: No New Acute Mental Status Change: No Is the patient on CPAP, BIPAP,: No Physician Orders Lumbar Spine 3 View (09/03/25 08:03) Accucheck (09/03/25 08:58) Vital Signs Date Time Temp Pulse Resp B/P (MAP) Pulse Ox O2 Delivery O2 Flow Rate FiO2 09/03/25 10:20 98.8 86 16 117/72 (87) 96 98.8 09/03/25 10:20 86 16 96 Room Air 09/03/25 07:33 97.8 94 18 148/99 97 97.8 Laboratory Tests Test 09/03/25 09:53 White Blood Count 6.7 10^3/uL (4.4-10.8) Medications Medications Dose Ordered Sig/Fran Route Start Time Stop Time Status Last Admin Dose Admin Ceftriaxone Sodium 1,000 mg ONCE ONCE IM 09/03/25 09:30 09/03/25 09:31 DC 09/03/25 09:47 Ketorolac Tromethamine 60 mg ONCE ONCE IM 09/03/25 08:15 09/03/25 08:16 DC 09/03/25 08:42 Departure 1 Departure Time of Disposition: 10:50 Impression: Primary Impression: DDD (degenerative disc disease), lumbar Qualified Codes: M51.360 - Other intervertebral disc degeneration, lumbar region with discogenic back pain only Additional Impressions: Acute UTI (urinary tract infection) Hyperglycemia Disposition: HOME / SELF CARE / HOMELESS Condition: Stable Additional Instructions: FOLLOW-UP WITH PCP MARIO FOR BLOOD SUGAR RECHECK. TAKE MEDICATIONS PRESCRIBED. RETURN TO ED FOR ANY NEW OR WORSENING SYMPTOMS. e-Prescriptions Tramadol HCl (Tramadol HCl) 50 Mg Tab 50 MG PO TID, #15 TAB Prov: JANELL CARRINGTON 09/03/25 Sulfamethoxazole W/Trimethopri (Bactrim Ds Tablet) 1 Tab Tb 1 TAB PO BID for 10 Days, #20 TAB Prov: JANELL CARRINGTON 09/03/25 Discharged With: Self Critical Care Note Critical Care Time?: No Stability Stability form required: No I personally scribed for JANELL CARRINGTON ([email or web address]) on 09/03/25 at 08:09. Electronically submitted by Abhishek Clark ([email or web address]). I personally scribed for JANELL CARRINGTON ([email or web address]) on 09/03/25 at 08:48. Electronically submitted by Abhishek Clark ([email or web address]). I personally scribed for JANELL CARRINGTON ([email or web address]) on 09/03/25 at 09:08. Electronically submitted by Abhishek Clark ([email or web address]). I personally scribed for JANELL CARRINGTON ([email or web address]) on 09/03/25 at 09:21. Electronically submitted by Abhishek Clark ([email or web address]). I personally scribed for JANELL CARRINGTON ([email or web address]) on 09/03/25 at 09:28. Electronically submitted by Abhishek Clark ([email or web address]). I personally scribed for JANELL CARRINGTON ([email or web address]) on 09/03/25 at 10:43. Electronically submitted by Abhishek Clark ([email or web address]). JANELL CARRINGTON Sep 03, 2025 08:09
[2025-09-03 08:41] LABS: Urine Protein, UAD 1+ (Negative)
--- NOTE | 2025-09-03 08:41 | DVH ---
INDICATION: PAIN, NO INJURY TECHNIQUE: Frontal and lateral views of the lumbar spine were obtained. COMPARISON: None FINDINGS: Multilevel facet arthropathy most severe at L4-L5 through L5-S1 causing moderate to severe neural foraminal and spinal canal stenosis. There are no fractures or subluxations. Vertebral body he ights and disc spaces are well maintained. Paravertebral soft tissues are unremarkable. IMPRESSION: 1. Of the visualized spine, there is no evidence for fracture or subluxation.
[2025-09-03] MEDS: KETOROLAC TROMETH 60MG/2ML VIAL IM ONE (08:42)
[2025-09-03] MEDS: cefTRIAXone SOD 1,000 MG VL IM ONE (09:47)
[2025-09-03 10:14] LABS: Hematocrit 45.3 % (36.0-46.0); Hemoglobin 15.1 g/dL (12.2-16.2); Mean Corpuscular Hemoglobin 31.0 pg (28.0-32.0); Mean Corpuscular Volume 92.9 fL (80.0-100.0); Nucleated Red Blood Cells % 0.1 %
[2025-09-03 10:20] VITALS: BP 117/72; PULSE 86; RESP 16; TEMP 98.8; O2SAT 96
[2025-09-03 10:26] LABS: Chloride 104 mmol/L (98-107); Potassium 4.0 mmol/L (3.5-5.1); Sodium 137 mmol/L (136-145)
[2025-09-03 10:27] LABS: Anion Gap 11 (5-15); Calcium 9.0 mg/dL (8.7-10.4); Carbon Dioxide 22 mmol/L (20-31)
[2025-09-03 10:32] LABS: BUN/Creatinine Ratio 13.3 (10.0-20.0); Blood Urea Nitrogen 11 mg/dL (9-23)
[2025-09-03 10:37] LABS: Glucose 289 mg/dL (74-106)
[2025-09-03] MEDS ORDERED: TRAM-626 PO (10:46)
[2025-09-03] MEDS ORDERED: BACDST PO (10:46)
== END 2025-09-03 10:50 | disposition home or self-care (01) ==
LOC: ER 07:36
DX: M51.360 Other intervertebral disc degeneration, lumbar region with discogenic back pain only (principal); N39.0 Urinary tract infection, site not specified; R73.9 Hyperglycemia, unspecified; J45.909 Unspecified asthma, uncomplicated; F41.9 Anxiety disorder, unspecified; Z79.899 Other long term (current) drug therapy; Z90.49 Acquired absence of other specified parts of digestive tract; Z90.89 Acquired absence of other organs; Z98.51 Tubal ligation status; Z98.890 Other specified postprocedural states; Z88.0 Allergy status to penicillin
CPT/HCPCS: 36415; 72100; 80048; 81001; 82947; 85025; 96372; 99284; J0696; J1885; 82962